=== PATIENT | female | born 1975 | race Caucasian/White ===

== ENCOUNTER 2018-12-08 15:24 | Emergency (ER) | payer BC ==
[~2018-12-08] VITALS: Ht 177.8 cm; Wt 94.3 kg
--- NOTE | 2018-12-08 16:27 | PHYS DOC ---
Adult General Chief Complaint Chief Complaint: ANXIETY/PANIC ATTACK HPI HPI Patient is a 43 year old female who presents with multiple complaints. Patient is visiting [place] on vacation and states over the last 4 days she's been feeling nauseous, and also been having vaginal bleeding for last 2 weeks. She also states she's been having some lightheaded, and dry mouth. States her pain is 1 out of 10 in severity. Describes as cramping. Has been taking magnesium to help with anxiety. Pain is located lower abdomen. Review of Systems Review of Systems Constitutional: Denies fever or chills [] Eyes: Denies change in visual acuity, redness, or eye pain [] HENT: Denies nasal congestion or sore throat [] Respiratory: Denies cough or shortness of breath [] Cardiovascular: No additional information not addressed in HPI. GI: Denies abdominal pain but reports intermittent cramping,and nausea, Denies vomiting, bloody stools or diarrhea [] : Denies dysuria or hematuria. Reports vaginal bleeding x 2 weeks. Musculoskeletal: Denies back pain or joint pain [] Integument: Denies rash or skin lesions [] Neurologic: Denies headache, focal weakness or sensory changes [] Endocrine: Denies polyuria or polydipsia [] Complete systems were reviewed and found to be within normal limits, except as documented in this note. Current Medications Current Medications Current Medications Medications (Trade) Dose Ordered Sig/[facility] Start Time Stop Time Status Last Admin Dose Admin Ondansetron HCl (Zofran Odt) 4 mg 1X ONCE 12/08/18 16:30 12/08/18 16:31 DC 12/08/18 17:10 4 MG Allergies Allergies Allergies Coded Allergies Type Severity Reaction Last Updated Verified No Known Drug Allergies 12/08/18 No Physical Exam Physical Exam Constitutional: Well developed, well nourished, no acute distress, non-toxic appearance. [] HENT: Normocephalic, atraumatic, bilateral external ears normal, oropharynx moist, no oral exudates, nose normal. [] Eyes: PERRLA, EOMI, conjunctiva normal, no discharge. [] Neck: Normal range of motion, no tenderness, supple, no stridor. [] Cardiovascular:Heart rate regular rhythm, no murmur [] Lungs & Thorax: Bilateral breath sounds clear to auscultation [] Abdomen: Bowel sounds normal, soft, no tenderness, no masses, no pulsatile masses. [] Skin: Warm, dry, no erythema, no rash. [] Back: No tenderness, no CVA tenderness. [] Extremities: No tenderness, no cyanosis, no clubbing, ROM intact, no edema. [] Neurologic: Alert and oriented X 3, normal motor function, normal sensory function, no focal deficits noted. [] Psychologic: Affect normal, judgement normal, mood normal. [] Current Patient Data Vital Signs Vital Signs Date Time Temp Pulse Resp B/P (MAP) Pulse Ox O2 Delivery O2 Flow Rate FiO2 12/08/18 15:56 98.7 91 18 145/85 (105) 98 Room Air 98.7 Lab Values Laboratory Tests Test 12/08/18 16:52 12/08/18 17:03 12/08/18 17:38 Urine Collection Type Unknown Urine Color Yellow Urine Clarity Clear Urine pH 6.5 Urine Specific Barnett 1.015 Urine Protein 30 mg/dL (NEG-TRACE) Urine Glucose (UA) 100 mg/dL (NEG) Urine Ketones (Stick) Negative mg/dL (NEG) Urine Blood Large (NEG) Urine Nitrite Negative (NEG) Urine Bilirubin Negative (NEG) Urine Urobilinogen Dipstick 0.2 mg/dL (0.2 mg/dL) Urine Leukocyte Esterase Small (NEG) Urine RBC Tntc /HPF (0-2) Urine WBC 1-4 /HPF (0-4) Urine Squamous Epithelial Cells Few /LPF Urine Bacteria 0 /HPF (0-FEW) POC Urine HCG, Qualitative Hcg negative (Negative) White Blood Count 8.7 x10^3/uL (4.0-11.0) Red Blood Count 4.20 x10^6/uL (3.50-5.40) Hemoglobin 13.5 g/dL (12.0-15.5) Hematocrit 40.1 % (36.0-47.0) Mean Corpuscular Volume 95 fL (79-100) Mean Corpuscular Hemoglobin 32 pg (25-35) Mean Corpuscular Hemoglobin Concent 34 g/dL (31-37) Red Cell Distribution Width 14.2 % (11.5-14.5) Platelet Count 354 x10^3/uL (140-400) Neutrophils (%) (Auto) 75 % (31-73) H Lymphocytes (%) (Auto) 18 % (24-48) L Monocytes (%) (Auto) 6 % (0-9) Eosinophils (%) (Auto) 0 % (0-3) Basophils (%) (Auto) 1 % (0-3) Neutrophils # (Auto) 6.5 x10^3/uL (1.8-7.7) Lymphocytes # (Auto) 1.6 x10^3/uL (1.0-4.8) Monocytes # (Auto) 0.5 x10^3/uL (0.0-1.1) Eosinophils # (Auto) 0.0 x10^3/uL (0.0-0.7) Basophils # (Auto) 0.1 x10^3/uL (0.0-0.2) Sodium Level 143 mmol/L (136-145) Potassium Level 3.8 mmol/L (3.5-5.1) Chloride Level 108 mmol/L (98-107) H Carbon Dioxide Level 25 mmol/L (21-32) Anion Gap 10 (6-14) Blood Urea Nitrogen 13 mg/dL (7-20) Creatinine 0.8 mg/dL (0.6-1.0) Estimated GFR (Cockcroft-Gault) 78.3 BUN/Creatinine Ratio 16 (6-20) Glucose Level 99 mg/dL (70-99) Calcium Level 8.9 mg/dL (8.5-10.1) Magnesium Level 2.1 mg/dL (1.8-2.4) Total Bilirubin 0.3 mg/dL (0.2-1.0) Aspartate Amino Transferase (AST) 14 U/L (15-37) L Alanine Aminotransferase (ALT) 22 U/L (14-59) Alkaline Phosphatase 63 U/L (46-116) Total Protein 7.4 g/dL (6.4-8.2) Albumin 3.3 g/dL (3.4-5.0) L Albumin/Globulin Ratio 0.8 (1.0-1.7) L Laboratory Tests 12/08/18 17:38 Laboratory Tests 12/08/18 17:38 EKG EKG [] Radiology/Procedures Radiology/Procedures []PATIENT: SALTY MAGALLONQUANOUNT: [id number]#: [id number] : 1975 LOCATION: ER AGE: 43 SEX: F EXAM STATUS: REG ER ORD. PHYSICIAN: ABDULLAHI MOTA APRN REASON: vaginal bleeding x 2 weeks. PROCEDURE: PELVIS ULTRASOUND Pelvic sonography Clinical indications: Vaginal bleeding for 2 weeks. FINDINGS: The uterus is anteverted in position. The longitudinal and AP and transverse dimensions of the uterus are 11.6 cm and 4.7 cm and 6.2 cm respectively. The endometrial canal measures 4.5 mm in thickness which is normal. No uterine mass or fibroid is seen. No free fluid is evident. No adnexal mass is seen. The left ovary is normal and measures 2.8 cm and 2.5 cm and 1.6 cm in size. The right ovary is normal and measures 1.7 cm and 2.4 cm and 1.7 cm in size. Color Doppler flow is seen within both ovaries. No adnexal mass is seen. IMPRESSION: Unremarkable pelvic sonogram. Electronically signed by: Moises Shelton MD (12/08/2018 5:13 PM) [facility] Course & Med Decision Making Course & Med Decision Making Pertinent Labs and Imaging studies reviewed. (See chart for details) Will get labs, ultrasound, and give zofran. Will also check test. Labs and ultrasound were unremarkable. Urine shows leukocytes. Will treat for UTI. test was negative. Ultrasound was unremarkable. Dragon Disclaimer Dragon Disclaimer This electronic medical record was generated, in whole or in part, using a voice recognition dictation system. Departure Departure Impression: Primary Impression: Urinary tract infection Disposition: 01 HOME, SELF-CARE Condition: STABLE Referrals: UNKNOWN PCP NAME (PCP) Patient Instructions: Nausea, Adult, Urinary Tract Infection Additional Instructions: Thank you for visiting [facility]. We appreciate you trusting us with your care. If any additional problems come up don't hesitate to return to visit us. Please follow up with your primary care provider so they can plan additional care if needed and know about the problem that you had. If symptoms worsen come back to the Emergency Department. Any concerning symptoms that start such as chest pain, shortness of air, weakness or numbness on one side of the body, running high fevers or any other concerning symptoms return to the ER. You have been prescribed an antibiotic today to help fight your infection. Please take all of the antibiotic as directed. If after 48 hours the infection is not improving, please return for more care. If the infection worsens, return to ER for additional care. Please fill your medications at any pharmacy and follow the prescription instructions. Scripts Ondansetron (ONDANSETRON ODT) 4 Mg Tab.rapdis 1 TAB PO PRN Q6-8HRS, #16 TAB Prov: ABDULLAHI MOTA APRN 12/08/18 Cephalexin (KEFLEX) 500 Mg Capsule 1 CAP PO BID for 7 Days, #14 CAP Prov: ABDULLAHI MOTA APRN 12/08/18 Problem Qualifiers Primary Impression: Urinary tract infection Urinary tract infection type: acute cystitis Hematuria presence: with hematuria Qualified Codes: N30.01 - Acute cystitis with hematuria ABDULLAHI MOTA APRN Dec 08, 2018 16:27
[2018-12-08] MEDS ORDERED: ONDANSETRON ODT 4 MG TAB.RAPDIS. PO ONE (16:30)
[2018-12-08 17:08] LABS: BILIRUBIN,URINE NEGATIVE (NEG); CLARITY,URINE CLEAR; COLOR,URINE YELLOW; NITRITE,URINE NEGATIVE (NEG); PH,URINE 6.5; PROTEIN,URINE 30 mg/dL (NEG-TRACE); UROBILINOGEN,URINE 0.2 mg/dL (0.2 mg/dL)
[2018-12-08 17:12] LABS: RBC,URINE TNTC /HPF (0-2)
[2018-12-08 17:13] LABS: BACTERIA,URINE 0 /HPF (0-FEW); SQUAMOUS EPITHELIAL CELL,UR FEW /LPF
--- NOTE | 2018-12-08 17:16 | RAD ---
Pelvic sonography Clinical indications: Vaginal bleeding for 2 weeks. FINDINGS: The uterus is anteverted in position. The longitudinal and AP and transverse dimensions of the uterus are 11.6 cm and 4.7 cm and 6.2 cm respectively. The endometrial canal measures 4.5 mm in thickness which is normal. No uterine mass or fibroid is seen. No free fluid is evident. No adnexal mass is seen. The left ovary is normal and measures 2.8 cm and 2.5 cm and 1.6 cm in size. The right ovary is normal and measures 1.7 cm and 2.4 cm and 1.7 cm in size. Color Doppler flow is seen within both ovaries. No adnexal mass is seen. IMPRESSION: Unremarkable pelvic sonogram. Electronically signed by: Moises Shelton MD (12/08/2018 5:13 PM) [facility] [place]
[2018-12-08 18:01] LABS: BASO # 0.1 x10^3/uL (0.0-0.2); BASO % 1 % (0-3); EOS % 0 % (0-3); HEMATOCRIT 40.1 % (36.0-47.0); HEMOGLOBIN 13.5 g/dL (12.0-15.5); LYMPH # 1.6 x10^3/uL (1.0-4.8); LYMPH % 18 % (24-48); MEAN CORPUSCULAR HEMOGLOBIN 32 pg (25-35); MEAN CORPUSCULAR HGB CONC 34 g/dL (31-37); MEAN CORPUSCULAR VOLUME 95 fL (79-100); MONO # 0.5 x10^3/uL (0.0-1.1); MONO % 6 % (0-9); NEUT # 6.5 x10^3/uL (1.8-7.7); NEUT % 75 % (31-73); PLATELET COUNT 354 x10^3/uL (140-400); RED CELL DISTRIBUTION WIDTH 14.2 % (11.5-14.5); WHITE BLOOD COUNT 8.7 x10^3/uL (4.0-11.0)
[2018-12-08 18:14] LABS: CALCIUM 8.9 mg/dL (8.5-10.1); CREATININE 0.8 mg/dL (0.6-1.0); GFR 78.3; POTASSIUM 3.8 mmol/L (3.5-5.1)
[2018-12-08 18:28] LABS: ALBUMIN 3.3 g/dL (3.4-5.0); ALBUMIN/GLOBULIN RATIO 0.8 (1.0-1.7); MAGNESIUM 2.1 mg/dL (1.8-2.4); TOTAL BILIRUBIN 0.3 mg/dL (0.2-1.0); TOTAL PROTEIN 7.4 g/dL (6.4-8.2)
[2018-12-08] MEDS ORDERED: CEPH-264 PO (18:37)
[2018-12-08] MEDS ORDERED: ONDA4TAB12 PO (18:37)
[2018-12-08 18:47] VITALS: BP 131/80
== END 2018-12-08 18:45 | disposition home or self-care (01) ==
LOC: ER 15:24
DX: N30.01 Acute cystitis with hematuria (principal); R42 Dizziness and giddiness
CPT/HCPCS: 36415; 76856; 80053; 81001; 81025; 83735; 85025; 87086; 99285; Q0162